=== PATIENT | male | born 1930 | race Caucasian/White ===

== ENCOUNTER 2017-11-10 15:00 | Outpatient (CLI) | payer MEDICARE, OTHER ==
--- NOTE | 2017-11-10 16:28 | Diagnostic Imaging Report ---
GABRIEL VARGAS (PHILLY) - OP [facility] [id number] [address] Report Submission Date: Nov 10, 2017 3:47:55 PM CDT Patient Study Name: CARL MEMBRENO Date: Nov 10, 2017 3:03:52 PM CDT Modality Type: DX Gender: M Description: CHEST : 32 Institution: [facility] Physician: GABRIEL VARGAS (PHILLY) - OP Chest two views History: 2 weeks of cough Findings: Emphysema is observed. 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 Heart size is normal. There is no infiltrate or pleural effusion. Osseous structures are intact. Impression: 1. Emphysema. 2. Incidental embolization of numerous prostate brachytherapy seeds. Electronically signed on Nov 10, 2017 3:47:55 PM CDT by: Kulwant PIMENTEL
== END 2017-11-10 15:20 ==
LOC: RAD 15:00
PROVIDERS: ATTEND Nurse Practitioner Family
DX: R05 Cough (principal)
CPT/HCPCS: 71046